=== PATIENT | male | born 1960 ===

== ENCOUNTER 2017-01-05 16:46 | Emergency (ER) | payer OTHER ==
[2017-01-05] MEDS ORDERED: Naloxone 0.4 mg/ml Inj (Adult) IVP STA (17:05)
[2017-01-05] MEDS ORDERED: Sodium Chloride 0.9% 1,000 ML IV ONE (17:05)
[2017-01-05 17:28] LABS: EOS # 0.1 K/uL (0.0-0.7); EOS % 1.3 % (0.0-4.0); HEMATOCRIT 39.6 % (35.0-51.0); LYMPH % 20.4 % (20.0-40.0); MEAN CELL VOLUME 93.2 fL (80.0-94.0); MEAN CORPUSCULAR HEMOGLOBIN 32.4 pg (27.0-31.0); MEAN CORPUSCULAR HGB CONC 34.7 g/dL (33.0-37.0); MEAN PLATELET VOLUME 7.7 fL (7.2-11.7); MONO # 0.6 K/uL (0.0-0.8); MONO % 12.5 % (0.0-10.0); RED CELL DISTRIBUTION WIDTH 12.9 % (11.5-14.5); WHITE BLOOD COUNT 4.7 K/uL (4.8-10.8)
[2017-01-05] MEDS ORDERED: Naloxone 0.4 mg/ml Inj (Adult) ONE (17:30)
[2017-01-05] MEDS ORDERED: Sodium Chloride 0.9% 1,000 ML ONE (17:30)
[2017-01-05 17:44] LABS: CHLORIDE 101 mmol/L (98-107)
[2017-01-05 17:45] LABS: POTASSIUM 4.8 mmol/L (3.6-5.2); SODIUM 137 mmol/L (132-148)
[2017-01-05 17:47] LABS: GFR AFRICAN-AMERICAN > 60
[2017-01-05 17:48] LABS: ALKALINE PHOSPHATASE 61 U/L (38-126); ALT/SGPT 116 U/L (21-72); AST/SGOT 214 U/L (17-59); BILIRUBIN,TOTAL 0.5 mg/dL (0.2-1.3); BLOOD UREA NITROGEN 11 mg/dL (9-20); CALCIUM 8.3 mg/dl (8.6-10.4); CARBON DIOXIDE 24 mmol/L (22-30); GLUCOSE,RANDOM 71 mg/dL (75-110); TOTAL PROTEIN 7.7 g/dL (6.3-8.3)
[2017-01-05 17:49] LABS: ALCOHOL SERUM 225 mg/dl (0-10)
[2017-01-05 18:52] LABS: RBC URINE 4 /hpf (0-3); URINE BACTERIA RARE (<OCC); URINE BILIRUBIN NEGATIVE (NEGATIVE); URINE COLOR Yellow (YELLOW); URINE GLUCOSE (UA) NORMAL (Normal); URINE KETONE NEGATIVE (NEGATIVE); URINE LEUKOCYTE ESTERASE NEG Leu/uL (Negative); URINE PROTEIN NEGATIVE (NEGATIVE); WBC URINE 1 /hpf (0-5)
[2017-01-05 19:01] LABS: URINE BLOOD 1+ (NEGATIVE)
--- NOTE | 2017-01-05 19:18 | C.PDOC ---
History Of Present Illness 56 y/o male presents to the ED s/p overdose. Pt was found down and out in [facility]. Pt admits to using heroin and drinking pint of vodka. 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 Received narcan in field by EMS. Time Seen by Provider: 01/05/17 17:01 Chief Complaint (Nursing): Medical Clearance History Per: Patient History/Exam Limitations: no limitations Onset/Duration Of Symptoms: Hrs Current Symptoms Are (Timing): Still Present Severity: Moderate Recent travel outside of the [place]: No Past Medical History Reviewed: Historical Data, Nursing Documentation, Vital Signs Vital Signs: Last Vital Signs Temp 98.3 F 01/05/17 16:56 Pulse 94 H 01/05/17 16:56 Resp 18 01/05/17 16:56 BP 113/72 01/05/17 16:56 Pulse Ox 97 01/05/17 19:19 Surgical History: Appendectomy Family History: States: Unknown Family Hx - Social History Hx Alcohol Use: Yes Hx Substance Use: Yes - Immunization History Hx Tetanus Toxoid Vaccination: No Hx Influenza Vaccination: No Hx Pneumococcal Vaccination: No Review Of Systems Except As Marked, All Systems Reviewed And Found Negative. Physical Exam - Physical Exam Appears: Non-toxic, Other (sleepy) Skin: Warm, Dry, No Rash Head: Atraumatic, Normacephalic Eye(s): bilateral: Other (pinpoint pupils) Neck: Normal, Normal ROM, Supple Chest: Symmetrical Cardiovascular: Rhythm Regular, No Murmur Respiratory: Normal Breath Sounds, No Rales, No Rhonchi, No Wheezing Extremity: Bilateral: Atraumatic Neurological/Psych: Oriented x3 ED Course And Treatment - Laboratory Results Result Diagrams: 01/05/17 17:24 01/05/17 17:24 Lab Interpretation: Abnormal (etoh 225, tox + benzo/opiates) O2 Sat by Pulse Oximetry: 97 (room air) Pulse Ox Interpretation: Normal - Radiology CXR: Interpreted by Me CXR Interpretation: Yes: No Acute Disease Reevaluation Time: 20:01 Reassessment Condition: Improved (hungry, A/O x 3) Medical Decision Making Medical Decision Making: Plan: EKG, labs, UA, CXR, narcan, IV fluids persistent alcohol and heroine abuse, homeless. Disposition Doctor Will See Patient In The: Office Counseled Patient/Family Regarding: Studies Performed, Diagnosis - Disposition Disposition: HOME/ ROUTINE Disposition Time: 20:01 Condition: GOOD - Clinical Impression Clinical Impression: Heroin abuse, Alcohol abuse - Julianaibe Statement The provider has reviewed the documentation as recorded by the Evelio Eddy Provider Attestation: All medical record entries made by the Evelio were at my direction and personally dictated by me. I have reviewed the chart and agree that the record accurately reflects my personal performance of the history, physical exam, medical decision making, and the department course for this patient. I have also personally directed, reviewed, and agree with the discharge instructions and disposition.
[2017-01-05 20:12] VITALS: BP 121/70; PULSE 91; RESP 20; TEMP 98.6; O2SAT 99
--- NOTE | 2017-01-06 07:37 | RAD ---
PROCEDURE: CHEST RADIOGRAPH, 1 VIEW HISTORY: Overdosed COMPARISON: 07/05/2016 FINDINGS: LUNGS: Mild venous congestion. PLEURA: No pneumothorax or pleural fluid seen. CARDIOVASCULAR: Normal. OSSEOUS STRUCTURES: No significant abnormalities. VISUALIZED UPPER ABDOMEN: Normal. OTHER FINDINGS: None. IMPRESSION: Mild venous congestion.
== END 2017-01-05 20:17 | disposition short-term general hospital (02) ==
LOC: C.ER 16:46
DX: F11.10 Opioid abuse, uncomplicated (principal); F10.10 Alcohol abuse, uncomplicated; Y90.7 Blood alcohol level of 200-239 mg/100 ml
CPT/HCPCS: 71010; 80053; 81001; 82948; 85025; 96361; 96374; 99283; G0480; J2310; J7040